=== PATIENT | female | born 1970 | race African-American/Black ===

== ENCOUNTER 2018-02-03 13:08 | Emergency (ER) | payer MEDICAID, OTHER ==
[~2018-02-03] VITALS: Ht 172.7 cm; Wt 82.0 kg
[2018-02-03] MEDS ORDERED: IBUPROFEN 800MG TABLET PO ONE (13:45)
[2018-02-03 13:53] VITALS: BP 164/98
== END 2018-02-03 15:39 | disposition home or self-care (01) ==
LOC: ER 13:08
DX: M54.2 Cervicalgia (principal); M54.5 Low back pain; M79.10 Myalgia, unspecified site; V49.49XA Driver injured in collision with other motor vehicles in traffic accident, initial encounter; Y93.89 Activity, other specified; Y92.89 Other specified places as the place of occurrence of the external cause; Y99.8 Other external cause status
CPT/HCPCS: 72040; 72100; 99283

== ENCOUNTER 2022-01-05 16:41 | Emergency (ER) | payer OTHER ==
[~2022-01-05] VITALS: Ht 172.7 cm; Wt 91.0 kg
[2022-01-05 17:41] VITALS: BP 130/93
== END 2022-01-05 22:45 | disposition left against medical advice (07) ==
LOC: ER 16:41
DX: Z53.21 Procedure and treatment not carried out due to patient leaving prior to being seen by health care provider (principal)